=== PATIENT | female | born 1940 | race Caucasian/White ===

== ENCOUNTER → 2016-11-09 | Outpatient (CLI) | payer MEDICARE ==
[~2016-11-09] MED LIST: ACET500T36 PO; ACYC800T PO; CARV6.25 PO; CLOP75TA PO; COQ-50CA2; GABA300C5 PO; PRAV20TA2 PO; RAMI2.5C PO; TRAM50TA PO; VITA10003 PO; ZOFR4TAB PO
[2016-11-09 09:46] LABS: HEMATOCRIT 41.1 % (35.0-46.0); MEAN CELL VOLUME 94.4 FL (80.0-100.0); MEAN CORPUSCULAR HGB CONC 32.8 % (32.0-36.0); PLATELET COUNT 190 TH/MM3 (150-450); RED BLOOD COUNT 4.35 MIL/MM3 (4.00-5.30); RED CELL DISTRIBUTION WIDTH 13.9 % (11.6-17.2); REVIEW FLAG FINAL; WHITE BLOOD COUNT 5.1 TH/MM3 (4.0-11.0)
[2016-11-09 10:30] LABS: BICARBONATE 30.1 MEQ/L (21.0-32.0); POTASSIUM 4.2 MEQ/L (3.5-5.1)
[2016-11-09 10:56] LABS: HDL CHOLESTEROL 66.4 MG/DL (40.0-60.0)
== END ==
LOC: CLAB 09:14
PROVIDERS: ATTEND Internal Medicine Cardiovascular Disease
DX: E78.5 Hyperlipidemia, unspecified (principal)
CPT/HCPCS: 36415; 80048; 80061; 82607; 85027

== ENCOUNTER 2016-11-18 07:07 | Emergency (ER) | payer MEDICARE ==
[~2016-11-18] VITALS: Ht 157.5 cm; Wt 59.0 kg
[2016-11-18 07:10] VITALS: BP 225/102; PULSE 69; RESP 20; TEMP 97.5; O2SAT 100
[2016-11-18] MEDS ORDERED: PRAV20TA2 PO (07:40)
[2016-11-18] MEDS ORDERED: RAMI2.5C PO (07:40)
[2016-11-18] MEDS ORDERED: CARV6.25 PO (07:40)
--- NOTE | 2016-11-18 07:51 | PD ---
HPI Chief Complaint: Headache Time Seen by Provider: 07:41 Travel History International Travel<30 days: No Contact w/Intl Traveler<30days: No Traveled to known affect area: No History of Present Illness HPI 76yo F with PMH of HTN, shingles presents to the ED with c/o left facial pain for 1.5 days. States it is sharp and last night, started having a vesicular rash in the midforehead. Pt states she has had facial shingles before and this feels similar. States pain is radiating from left face to left head and she had headache last time she had it too. Denies any fever, visual changes, neck pain, fall, focal weakness or numbness, chest pain, sob, n/v, abdominal pain. Pt states she normally takes her HTN medications at 9am and her BP was high in triage so she took them there. PFSH Past Medical History Hx Anticoagulant Therapy: Yes (plavix) Cardiovascular Problems: Yes (CABG x2 last year) High Cholesterol: Yes Chemotherapy: No Cerebrovascular Accident: No Hypertension: Yes Respiratory: No Influenza Vaccination: Yes ?: Not Past Surgical History Cholecystectomy: Yes Coronary Artery Bypass Graft: Yes Hysterectomy: Yes Social History Alcohol Use: No Tobacco Use: No Substance Use: No Allergies-Medications (Allergen,Severity, Reaction): Coded Allergies: No Known Allergies (Unverified , 11/18/16) Reported Meds & Prescriptions Reported Meds & Active Scripts Active Acetaminophen Extra Strength (Acetaminophen) 500 Mg Tab 500 Mg PO Q6H PRN Acyclovir 800 Mg Tab 800 Mg PO 5 TIMES A DAY 7 Days Reported Pravastatin Unknown Strength Tab Unknown Dose PO DAILY Coreg (Carvedilol) Unknown Strength Tab Unknown Dose PO BID Ramipril Unknown Strength Cap Unknown Dose PO BID Review of Systems Except as stated in HPI: all other systems reviewed are Neg Physical Exam Narrative GENERAL: 76yo F not in distress. SKIN: Small cluster of vesicular rash 1cm on left forehead. +Small 0.5cm vesicular rash left confucianism. HEAD: Atraumatic. Normocephalic. EYES: Pupils equal and round. No dendritic lesions on flurescein exam. No scleral icterus. No injection or drainage. ENT: No nasal bleeding or discharge. Mucous membranes pink and moist. NECK: Trachea midline. No JVD. CARDIOVASCULAR: Regular rate and rhythm. No murmur appreciated. RESPIRATORY: No accessory muscle use. Clear to auscultation. Breath sounds equal bilaterally. GASTROINTESTINAL: Abdomen soft, non-tender, nondistended. MUSCULOSKELETAL: No obvious deformities. No clubbing. No cyanosis. No edema. NEUROLOGICAL: Awake and alert. No obvious cranial nerve deficits. Motor grossly within normal limits. Normal speech. Pain in left face with light touch. No edema or erythema. PSYCHIATRIC: Appropriate mood and affect; insight and judgment normal. Data Data Last Documented VS Vital Signs Date Time Temp Pulse Resp B/P Pulse Ox O2 Delivery O2 Flow Rate FiO2 11/18/16 09:55 52 18 195/79 99 Room Air 11/18/16 07:10 97.5 Orders Acetaminophen (Tylenol) (11/18/16 08:15) Gabapentin (Neurontin) (11/18/16 08:15) [facility] Medical Decision Making Medical Screen Exam Complete: Yes Emergency Medical Condition: Yes Differential Diagnosis Herpes zoster vs. migraine headache vs. tension headache Narrative Course 76yo F with left facial pain that started prior to vesicular rash. Pt has rash in V1 distribution on left. No visual changes. No dendrites on flourescein exam with simon lamp. Pt given gabapentin and acetaminophen. Pt reevaluated at bedside and headache and facial pain has improved. BP was very elevated initially and pt took her usual HTN medications. Pt has no focal neurologic deficits. Return precautions given. Diagnosis Primary Impression: Herpes zoster Qualified Code: B02.9 - Herpes zoster without complication Patient Instructions: General Instructions Departure Forms: Tests/Procedures Additional Instructions: Please follow up with your PMD in 3-7 days. Return to the ED if symptoms worsen. Med/Other Pt SpecificInfo: Prescription(s) given Scripts Acetaminophen (Acetaminophen Extra Strength)500 Mg [id number] Mg PO Q6H PRN (PAIN SCALE 1 TO 4) #20 TAB Ref 0 Prov:StanislawNora 11/18/16 Acyclovir 800 Mg [id number] Mg PO 5 TIMES A DAY 7 Days Ref 0 Prov:Nora Dover DO 11/18/16 Disposition: 01 DISCHARGE HOME Condition: Stable DoverNora November 18, 2016 07:51
[2016-11-18] MEDS ORDERED: ACETAMINOPHEN 500 MG CPLT PO ONE (08:15)
[2016-11-18] MEDS ORDERED: GABAPENTIN 300 MG CAP PO ONE (08:15)
[2016-11-18 09:55] VITALS: BP 195/79; PULSE 52; RESP 18; O2SAT 99
[2016-11-18] MEDS ORDERED: ACYC800T PO (10:15)
[2016-11-18] MEDS ORDERED: ACET500T36 PO (10:15)
== END 2016-11-18 11:10 | disposition home or self-care (01) ==
LOC: NEPE 07:07
DX: B02.9 Zoster without complications (principal); I10 Essential (primary) hypertension
CPT/HCPCS: 99283

== ENCOUNTER 2016-11-21 13:05 | Emergency (ER) | payer MEDICARE ==
[~2016-11-21] VITALS: Ht 157.5 cm; Wt 59.0 kg
[~2016-11-21 13:05] MED LIST changes: -CLOP75TA PO; -COQ-50CA2; -GABA300C5 PO; -TRAM50TA PO; -VITA10003 PO; -ZOFR4TAB PO
[2016-11-21 13:09] VITALS: BP 201/98; PULSE 101; RESP 18; TEMP 98.3; O2SAT 99
[2016-11-21 13:13] VITALS: BP 194/94
[2016-11-21] MEDS ORDERED: COQ-50CA2 (13:25)
[2016-11-21] MEDS ORDERED: VITA10003 PO (13:25)
[2016-11-21] MEDS ORDERED: CLOP75TA PO (13:25)
[2016-11-21 13:33] VITALS: BP 212/91; PULSE 66; RESP 20; O2SAT 98
--- NOTE | 2016-11-21 13:50 | PD ---
HPI Chief Complaint: Skin Problem Time Seen by Provider: 13:50 Travel History International Travel<30 days: No Contact w/Intl Traveler<30days: No Traveled to known affect area: No History of Present Illness HPI 76-year-old female with history of hypertension and hyperlipidemia presents to the emergency department for evaluation of left-sided facial and head pain secondary to shingles. Patient has had a shingles rash in the left side of her face for the past 4 days. States that the rash has been getting worse and her pain has also been worsening. States that she was seen in our emergency department about 2 days ago and prescribed acyclovir and instructed to take Tylenol for pain. States that she has been taking the acyclovir as prescribed however the Tylenol is not controlling her pain. She denies any blurred vision , vision loss, fever, chills, nausea, vomiting. She describes a sharp shooting pain in the left side of her scalp and face. Aggravated with palpation. Denies any relieving factors. No other complaints. PFSH Past Medical History Hx Anticoagulant Therapy: Yes (PLAVIX) Cardiovascular Problems: Yes (CABG (2016)) High Cholesterol: Yes Chemotherapy: No Cerebrovascular Accident: No Hypertension: Yes Respiratory: No ?: Not Past Surgical History Cholecystectomy: Yes Coronary Artery Bypass Graft: Yes Hysterectomy: Yes Social History Alcohol Use: No Tobacco Use: No Substance Use: No Allergies-Medications (Allergen,Severity, Reaction): Coded Allergies: Hydrocodone (Verified Allergy, Intermediate, VOMITING, 11/21/16) Oxycodone (Verified Allergy, Intermediate, VOMITING, 11/21/16) Reported Meds & Prescriptions Reported Meds & Active Scripts Active Zofran (Ondansetron HCl) 4 Mg Tab 4 Mg PO Q6HR PRN Gabapentin 300 Mg Cap 300 Mg PO TID 30 Days Tramadol (Tramadol HCl) 50 Mg Tab 50 Mg PO Q6H PRN Acetaminophen Extra Strength (Acetaminophen) 500 Mg Tab 500 Mg PO Q6H PRN Acyclovir 800 Mg Tab 800 Mg PO 5 TIMES A DAY 7 Days Reported Coq-10 (Coenzyme Q10 (Ubidecarenone)) 50 Mg Cap DAILY Clopidogrel (Clopidogrel Bisulfate) 75 Mg Tab 75 Mg PO DAILY Vitamin D-3 (Cholecalciferol) 1,000 Unit Tab 2,000 Units PO DAILY Pravastatin Unknown Strength Tab 40 PO DAILY Coreg (Carvedilol) Unknown Strength Tab 2.5 PO BID Ramipril Unknown Strength Cap 2.5 PO BID Review of Systems Except as stated in HPI: all other systems reviewed are Neg Physical Exam Narrative GENERAL: Well-nourished and well-developed pleasant patient in no acute distress who is nontoxic appearing. SKIN: Warm and dry. Vesicular rash along the left side of scalp and left upper face. HEAD: Normocephalic and atraumatic. EYES: Left eye with injection and small amount of discharge however no dendritic lesions noted on fluorescein stain. No injection, drainage, or hyphema noted. PERRLA. EOMI. ENT: No nasal drainage noted. Oropharynx is clear and the TMs are normal with good landmarks. NECK: Supple and the trachea is midline. CARDIOVASCULAR: Regular rate and rhythm. RESPIRATORY: Breath sounds are equal bilaterally with no accessory muscle use, wheezing, rhonchi, or crackles. GASTROINTESTINAL: Abdomen is soft, non-tender, and nondistended. MUSCULOSKELETAL: No obvious deformities, swelling, cyanosis, or ecchymosis is present throughout the upper and lower extremities. Patient has full range of motion without any signs of neurovascular compromise. NEUROLOGICAL: Awake, alert, and oriented. Normal speech and gait. Cranial nerves are grossly intact. Data Data Last Documented VS Vital Signs Date Time Temp Pulse Resp B/P Pulse Ox O2 Delivery O2 Flow Rate FiO2 11/21/16 13:33 66 20 212/91 98 Room Air 11/21/16 13:[address] [facility] Medical Decision Making Medical Screen Exam Complete: Yes Emergency Medical Condition: Yes Differential Diagnosis Shingles versus neuropathic pain versus conjunctivitis Narrative Course 76-year-old female recently diagnosed with shingles presents to the emergency department for evaluation of pain on the left side of her face at the location of her shingles rash. Patient is afebrile, vital signs are stable. There is no ocular involvement on examination, no dendritic lesions seen on fluorescein stain. Patient has had no vision changes or vision loss. The patient states that oxycodone and hydrocodone cause her to have nausea and vomiting. We will prescribe her tramadol and gabapentin as well as Zofran as needed for nausea or vomiting. She is advised follow-up with her PCP. Patient verbalizes understanding and agreement with treatment plan. I discussed the case with my attending physician Dr. Forde who is aware of the patients history, physical examination findings, and treatment plan. Diagnosis Primary Impression: Herpes zoster Qualified Code: B02.9 - Herpes zoster without complication Referrals: Primary Care Physician Patient Instructions: General Instructions, Shingles (ED) Additional Instructions: Take medications as prescribed with food and a full glass of water. If nausea or vomiting you can try Zofran as prescribed. Follow-up with your Primary Care Physician. Return to the ED for any acute worsening of symptoms. Med/Other Pt SpecificInfo: Prescription(s) given Scripts Ondansetron (Zofran)4 Mg Tab4 Mg PO Q6HR PRN (NAUSEA OR VOMITING) #12 TAB Ref 0 Prov:Lauren Forde MD 11/21/16 Gabapentin 300 Mg [id number] Mg PO TID 30 Days Ref 0 Prov:Lauren Forde MD 11/21/16 Tramadol 50 Mg Tab50 Mg PO Q6H PRN (PAIN GREATER THAN 6) #20 TAB Ref 0 Prov:Lauren Forde MD 11/21/16 Disposition: 01 DISCHARGE HOME Condition: Stable Chastity Guidry November 21, 2016 13:50
[2016-11-21] MEDS ORDERED: GABA300C5 PO (13:57)
[2016-11-21] MEDS ORDERED: ZOFR4TAB PO (13:57)
[2016-11-21] MEDS ORDERED: TRAM50TA PO (13:57)
--- NOTE | 2016-11-21 13:58 | PD ---
Data Data Last Documented VS Vital Signs Date Time Temp Pulse Resp B/P Pulse Ox O2 Delivery O2 Flow Rate FiO2 11/21/16 13:33 66 20 212/91 98 Room Air 11/21/16 13:09 98.3 MDM Supervised Visit with BALJIT: Yes Narrative Course I, Dr. Forde, have reviewed the advance practice practioner's documentation and am in agreement, met with the patient face to face, made the diagnosis, and the medical decision making was done by me. *My assessment and Findings: 76-year-old female here after repeat ER visit for pain with regards to shingles on the left V1 distribution. Her eye was negative for dendritic lesion on her previous ER visit. I myself looked again with floor seen stain and this is persistently negative. Likely pain related to her shingles, will be started on gabapentin and analgesics for home. Lauren Forde MD November 21, 2016 13:58
== END 2016-11-21 15:23 | disposition home or self-care (01) ==
LOC: NEPD 13:05
DX: B02.9 Zoster without complications (principal); E78.00 Pure hypercholesterolemia, unspecified; I10 Essential (primary) hypertension; Z79.01 Long term (current) use of anticoagulants; Z95.1 Presence of aortocoronary bypass graft
CPT/HCPCS: 99284